=== PATIENT | female | born 1980 | race Caucasian/White ===

== ENCOUNTER 2018-09-11 20:43 | Emergency (ER) | payer MEDICAID ==
[~2018-09-11] VITALS: Ht 162.6 cm; Wt 64.0 kg
[2018-09-11 20:48] VITALS: BP 146/90
[2018-09-11] MEDS ORDERED: CEPH-572 PO (20:59)
[2018-11-03] MEDS ORDERED: ACET-2119 PO (10:47)
== END 2018-09-11 21:11 | disposition home or self-care (01) ==
LOC: ER 20:44
DX: N39.0 Urinary tract infection, site not specified (principal); Z79.2 Long term (current) use of antibiotics
CPT/HCPCS: 99283

== ENCOUNTER 2018-11-04 08:05 | Day surgery (SDC) | payer MEDICAID ==
[2018-11-03 10:48] LABS: BASOPHILS % (AUTO) 0.9 % (0-1); EOSINOPHILS # (AUTO) 0.1 X10'3 (0-0.9); EOSINOPHILS % (AUTO) 1.5 % (0-6); LYMPHOCYTES # (AUTO) 1.9 X10'3 (1.1-4.8); LYMPHOCYTES % (AUTO) 38.9 % (21-51); MEAN CORPUSCULAR HEMOGLOBIN 29.1 PG (27.0-31.0); MEAN CORPUSCULAR HGB CONC 34.4 g/dL (33.0-36.5); MEAN CORPUSCULAR VOLUME 84.5 FL (78-98); MEAN PLATELET VOLUME 8.4 FL (7.4-10.4); MONOCYTES # (AUTO) 0.4 X10'3 (0-0.9); MONOCYTES % (AUTO) 8.8 % (2-12); NEUTROPHILS # (AUTO) 2.4 X10'3 (1.8-7.7); NEUTROPHILS % (AUTO) 49.9 % (42-75); PRE OP HEMATOCRIT 39.7 % (35.0-45.0); PRE OP HEMOGLOBIN 13.7 g/dL (12.0-16.0); PRE OP PLATELET COUNT 208 X10'3 (140-440); RED CELL DISTRIBUTION WIDTH 12.6 % (11.5-14.5)
[2018-11-03 11:09] LABS: HCG SERUM QL NEGATIVE
[~2018-11-04] VITALS: Ht 172.7 cm; Wt 67.6 kg
[2018-11-04] VITALS (8 sets, daily range): BP systolic 117–133; BP diastolic 73–89
[~2018-11-04 08:05] MED LIST: ACET-2119 PO
[2018-11-04] MEDS ORDERED: famotidine 20mg tablet PO ONE (08:30)
[2018-11-04] MEDS ORDERED: ringers solution, lacted 1,000 ML IV SCH ×2 (08:30→11:06)
[2018-11-04] MEDS ORDERED: BUPIVAcaine/PF 2.5 mg/ml (0.25%) 30ml vial ONE (11:04)
[2018-11-04] MEDS ORDERED: sevoflurane 250ml liquid IH ONE (11:09)
[2018-11-04] MEDS ORDERED: hydrALAZINE 20mg/ml inj. IV PRN (11:10)
[2018-11-04] MEDS ORDERED: labetalol 20mg/4ml (5mg/ml) syringe IV PRN (11:10)
[2018-11-04] MEDS ORDERED: fentaNYL/PF 50MCG/1 ML 2ML syringe IV PRN (11:10)
[2018-11-04] MEDS ORDERED: ondansetron/PF 4mg/2ml inj IV PRN (11:10)
[2018-11-04] MEDS ORDERED: morphine 4 MG/ML inj SYRINge IV PRN ×2 (11:10)
[2018-11-04] MEDS ORDERED: fentaNYL/PF 50MCG/1 ML 2ML syringe ONE (11:16)
[2018-11-04] MEDS ORDERED: midazolam 2 mg/2 ml injection ONE (11:16)
[2018-11-04] MEDS ORDERED: propofol inj 20 ML IV ONE (11:22)
[2018-11-04] MEDS ORDERED: LIDOcaine 2% (20mg/ml) 5ml vial ONE (11:22)
[2018-11-04] MEDS ORDERED: rocuronium 10mg/ml inj IV ONE (11:22)
[2018-11-04] MEDS ORDERED: ondansetron/PF 4mg/2ml inj ONE (11:22)
[2018-11-04] MEDS ORDERED: dexamethasone sod phosphate 4mg/ml inj. ONE (11:23)
[2018-11-04] MEDS ORDERED: glycopyrrolate 0.2mg/ml inj ONE (11:24)
[2018-11-04] MEDS ORDERED: methylene blue (5mg/ml) 50mg/10ml ampul IV ONE (11:42)
--- NOTE | 2018-11-04 12:35 | NUR ---
Received from OR via BED , accompanied by Anesthesiologist DR NUNEZ and report given by Anesthesiolgist. PATIENT WAKING UP, DENIES PAIN, V/S WNL, NEUROVASCULAR CHECKS INTACT, 20G PIV LUE, SCD ON, 2 BANDAIDS TO LAP SIGHTS OF ABDOMEN AND TISHA PAD CDI.
[2018-11-04] MEDS ORDERED: oxyCODONE/APAP 5-325mg tablet PO PRN ×2 (12:50)
[2018-11-04] MEDS: fentaNYL/PF 50MCG/1 ML 2ML syringe IV PRN ×2 (13:00→13:05)
--- NOTE | 2018-11-04 13:35 | NUR ---
PATIENT A&OX4, DENIES PAIN, V/S WNL, NEUROVASCULAR CHECKS INTACT, 20G PIV LUE D/C, SCD OFF, 2 BANDAIDS TO LAP SIGHTS OF ABDOMEN AND TISHA PAD CDI.. I HAVE REVIEWED D/C INSTRUCTIONS WITH PATIENT AND FAMILY HAVE VERBALIZED UNDERSTANDING.PATIENT WAS D/C HOME WITH ALL BELONGINGS AND FAMILY GAVE TRANSPORT HOME.
== END 2018-11-04 13:35 | disposition home or self-care (01) ==
LOC: PAS 08:05 → EDUNIT# 12:00 → PAS 13:35
PROVIDERS: ATTEND Obstetrics & Gynecology
DX: R10.2 Pelvic and perineal pain (principal); N94.6 Dysmenorrhea, unspecified; N80.1 Endometriosis of ovary; G43.909 Migraine, unspecified, not intractable, without status migrainosus; Z91.041 Radiographic dye allergy status; Z98.890 Other specified postprocedural states; Z79.899 Other long term (current) drug therapy; Z72.89 Other problems related to lifestyle; Z82.49 Family history of ischemic heart disease and other diseases of the circulatory system; Z80.9 Family history of malignant neoplasm, unspecified
CPT/HCPCS: 36415; 58350; 58558; 58662; 82948; 84703; 85025; 86885; 86900; 86901; J1100; J2001; J2250; J2405; J2704; J3010; J3490; J7030; J7120; Q9968; A4618; A6250; A6258; A7000

== ENCOUNTER 2019-08-12 17:28 | Emergency (ER) | payer MEDICAID ==
[~2019-08-12] VITALS: Ht 162.6 cm; Wt 68.0 kg
[2019-08-12 17:34] VITALS: BP 138/91
[2019-08-12 17:58] LABS: CLARITY,URINE SLIGHTLY CLOUDY (Clear); COLOR,URINE YELLOW (Yellow); GLUCOSE, URINE NEGATIVE (Neg); KETONES,URINE NEGATIVE (Neg); LEUKOCYTE ESTERASE ,URINE NEGATIVE (Neg); NITRITES, URINE NEGATIVE (Neg); OCCULT BLOOD,URINE NEGATIVE (Neg); PH,URINE 8.5 (4.8-8.0); PROTEIN,URINE NEGATIVE (Neg); UROBILINOGEN,URINE 0.2 E.U/dL (0.2-1.0)
[2019-08-12 18:00] LABS: URINE HCG NEGATIVE (NEG)
[2019-08-12 18:01] LABS: UA COLLECTION TYPE CLN CATCH MIDSTREAM
[2019-08-12 18:04] LABS: AMORPHOUS PHOSPHATES 2+
[2019-08-12 18:06] LABS: SQUAMOUS EPITHELIAL CELL,UR MANY /LPF (FEW)
[2019-08-12 18:07] LABS: BACTERIA,URINE 1+ /HPF (Neg); RBC,URINE 0-2 /HPF (0-2); WBC,URINE 0-4 /HPF (0-4); YEAST FEW /HPF (NEGATIVE)
[2019-08-12] MEDS ORDERED: CefTRIAXone 1000mg IM Kit (w/lidocaine diluent) IM ONE (18:15)
[2019-08-12] MEDS ORDERED: SULF1TAB49 PO (18:33)
== END 2019-08-12 18:48 | disposition home or self-care (01) ==
LOC: ER 17:30
DX: N39.0 Urinary tract infection, site not specified (principal); R33.9 Retention of urine, unspecified; N89.8 Other specified noninflammatory disorders of vagina; Z87.440 Personal history of urinary (tract) infections; Z88.8 Allergy status to other drugs, medicaments and biological substances; Z79.2 Long term (current) use of antibiotics
CPT/HCPCS: 81001; 81025; 96372; 99283; J0696

== ENCOUNTER 2020-01-14 23:39 | Emergency (ER) | payer MEDICAID ==
[~2020-01-14] VITALS: Ht 172.7 cm; Wt 70.9 kg
[2020-01-15] MEDS ORDERED: ketorolac tromethamine 15mg/ml inj. IM ONE (00:20)
[2020-01-15 01:18] LABS: URINE HCG NEGATIVE (NEG)
[2020-01-15 01:21] LABS: ALANINE AMINOTRANSFERASE 22 U/L (12-78); ALBUMIN 3.6 G/DL (3.4-5.0); ALKALINE PHOSPHATASE 59 IU/L (46-116); ANION GAP 8 (8-16); ASPARTATE AMINO TRANSFERASE 18 U/L (10-37); BILIRUBIN,TOTAL 0.2 MG/DL (0.1-1.0); BLOOD UREA NITROGEN 18 MG/DL (7-18); BUN/CREATININE RATIO 21.4 (6.6-38.0); CALCIUM 8.9 MG/DL (8.5-10.1); CHLORIDE 106 MMOL/L (99-107); CREATININE 0.84 MG/DL (0.40-0.90); GLUCOSE 115 MG/DL (70-104); LIPASE 205 U/L (73-393); POTASSIUM 3.9 MMOL/L (3.5-5.1); SODIUM 139 MMOL/L (135-145); TOTAL CARBON DIOXIDE 24.7 MMOL/L (24-32); TOTAL PROTEIN 7.1 G/DL (6.4-8.2); eGFR 76 ML/MIN
[2020-01-15 01:31] LABS: BASOPHILS # (AUTO) 0.1 X10'3 (0-0.2); BASOPHILS % (AUTO) 0.9 % (0-1); EOSINOPHILS # (AUTO) 0.1 X10'3 (0-0.9); EOSINOPHILS % (AUTO) 1.9 % (0-6); HEMATOCRIT 38.9 % (35.0-45.0); HEMOGLOBIN 13.6 g/dl (12.0-16.0); LYMPHOCYTES # (AUTO) 1.9 X10'3 (1.1-4.8); LYMPHOCYTES % (AUTO) 26.9 % (21-51); MEAN CORPUSCULAR HEMOGLOBIN 29.7 PG (27.0-31.0); MEAN CORPUSCULAR HGB CONC 34.9 g/dL (33.0-36.5); MEAN CORPUSCULAR VOLUME 85.1 FL (78-98); MONOCYTES # (AUTO) 0.6 X10'3 (0-0.9); MONOCYTES % (AUTO) 7.9 % (2-12); NEUTROPHILS # (AUTO) 4.4 X10'3 (1.8-7.7); NEUTROPHILS % (AUTO) 62.4 % (42-75); PLATELET COUNT 196 X10'3 (140-440); RED BLOOD COUNT 4.58 X10'6 (4.20-5.60); RED CELL DISTRIBUTION WIDTH 12.6 % (11.5-14.5)
[2020-01-15 01:35] LABS: CLARITY,URINE CLEAR (Clear); COLOR,URINE YELLOW (Yellow); GLUCOSE, URINE NEGATIVE (Neg); KETONES,URINE NEGATIVE (Neg); LEUKOCYTE ESTERASE ,URINE NEGATIVE (Neg); NITRITES, URINE NEGATIVE (Neg); OCCULT BLOOD,URINE NEGATIVE (Neg); PROTEIN,URINE NEGATIVE (Neg); UROBILINOGEN,URINE 0.2 E.U/dL (0.2-1.0)
[2020-01-15 01:38] LABS: UA COLLECTION TYPE CLN CATCH MIDSTREAM
[2020-01-15 02:32] VITALS: BP 112/75
== END 2020-01-15 03:31 | disposition home or self-care (01) ==
LOC: ER 23:40
DX: R10.30 Lower abdominal pain, unspecified (principal); N80.9 Endometriosis, unspecified; Z87.448 Personal history of other diseases of urinary system; Z88.8 Allergy status to other drugs, medicaments and biological substances; Z79.899 Other long term (current) drug therapy
CPT/HCPCS: 36415; 80053; 81003; 81025; 83690; 85025; 96372; 99283; J1885